=== PATIENT | female | born 2000 | race Caucasian/White ===

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

== ENCOUNTER 2018-06-11 12:29 | Emergency (ER) | payer OTHER ==
[2018-06-11] MEDS ORDERED: IBUPROFEN 200 MG TAB PO ONE (13:32)
--- NOTE | 2018-06-11 13:54 | EDPHY ---
H & P Stated Complaint: SLIPPED FELL HIT HEAD MONDAY IN [place] SEN AT ED/NO LOC FEELS CONFUSED/NOVA Time Seen by Provider: 06/11/18 13:50 HPI/ROS: CHIEF COMPLAINT: Head injury, neck pain, confusion HISTORY OF PRESENT ILLNESS: The patient is referred to the ED for evaluation headache, neck pain and confusion following a fall several days ago where she slipped and hit her head on the ice. The patient does report prior history of concussions. She denies any acute numbness or weakness. She does report some midline cervical spine tenderness. The patient denies any abdominal pain, chest pain or difficulty breathing. The patient is not anticoagulated. She does take Adderall for attention deficit hyperactivity disorder. REVIEW OF SYSTEMS: A comprehensive 10 point review of systems is otherwise negative aside from elements mentioned in the history of present illness. Source: Patient Exam Limitations: No limitations - Personal History LMP (Females 10-55): Now Current Tetanus Diphtheria and Acellular Pertussis (TDAP): Yes - Medical/Surgical History Hx Asthma: Yes Hx Chronic Respiratory Disease: No Hx Diabetes: No Hx Cardiac Disease: No Hx Renal Disease: No Hx Cirrhosis: No Hx Alcoholism: No Hx HIV/AIDS: No Hx Splenectomy or Spleen Trauma: No Other PMH: asthma - Social History Smoking Status: Never smoked - Physical Exam Exam: General Appearance: Alert, no distress Head: Significant occipital tenderness, no hematoma Eyes: Pupils equal, round, reactive ENT, Mouth: No hemotympanum, no oral trauma Neck: Midline cervical spine tenderness appreciated Respiratory: No chest wall tender, no subcutaneous air, lungs clear bilaterally Cardiovascular: Regular rate and rhythm Abdomen: Abdomen is soft and nontender, pelvis stable Skin: No lacerations, No abrasion Back: No midline T/L/S pain Extremities: Nontender, full range of motion Neurological: A&Ox3, normal motor function, normal sensory exam Constitutional: Initial Vital Signs Temperature (C) 36.7 C 06/11/18 12:35 Heart Rate 84 06/11/18 12:35 Respiratory Rate 18 06/11/18 12:35 Blood Pressure 112/87 H 06/11/18 12:35 O2 Sat (%) 98 06/11/18 12:35 O2 Delivery Mode Room Air Allergies/Adverse Reactions: No Known Allergies Allergy (Verified 06/11/18 12:33) Home Medications: Medication Instructions Recorded Adderall 10 MG (*) 06/11/18 Clonidine HCl 06/11/18 Spironolactone 06/11/18 Medical Decision Making - Diagnostics Imaging Results: Imaging Impressions Cervical Spine CT 06/11/18 13:52 Impression: Negative noncontrast CT of the head with no intracranial posttraumatic sequela identified. 2. CT Cervical Spine Without Contrast, 2:11 PM History: Trauma. Fall 2 days ago. Pain. Technique: Multi-slice ultrathin single breath-hold helical CT through the neck from the skull base through the thoracic inlet without contrast. Soft tissue and bone window evaluation is performed. Sagittal and coronal reconstructions are obtained. Dose reduction techniques were utilized. Findings: Alignment is anatomic, but mildly reversed centered at C4-C5.. No fracture or dislocation is identified. Disk spaces are well maintained. There is a small central disk bulge at C6-C7. Facets are normally aligned and intact. The skull base-C1 and C1-C2 relationships are normal. The odontoid process is intact. There is no evidence of a prevertebral or epidural hematoma. The cervical thoracic junction is normally aligned. Impression: Possible muscle spasm. No fracture or dislocation. Final concordant results discussed with Dr. Mango Rios at 2:40 PM. If there is concern for instability, then consider lateral flexion-extension views and/or cervical MRI. General information for patients regarding this examination can be found at [email or web address]. If you have questions or comments about this report, please contact me at (hospital) or [phone] (cell). Head CT 06/11/18 13:52 Impression: Negative noncontrast CT of the head with no intracranial posttraumatic sequela identified. 2. CT Cervical Spine Without Contrast, 2:11 PM History: Trauma. Fall 2 days ago. Pain. Technique: Multi-slice ultrathin single breath-hold helical CT through the neck from the skull base through the thoracic inlet without contrast. Soft tissue and bone window evaluation is performed. Sagittal and coronal reconstructions are obtained. Dose reduction techniques were utilized. Findings: Alignment is anatomic, but mildly reversed centered at C4-C5.. No fracture or dislocation is identified. Disk spaces are well maintained. There is a small central disk bulge at C6-C7. Facets are normally aligned and intact. The skull base-C1 and C1-C2 relationships are normal. The odontoid process is intact. There is no evidence of a prevertebral or epidural hematoma. The cervical thoracic junction is normally aligned. Impression: Possible muscle spasm. No fracture or dislocation. Final concordant results discussed with Dr. Mango Rios at 2:40 PM. If there is concern for instability, then consider lateral flexion-extension views and/or cervical MRI. General information for patients regarding this examination can be found at [email or web address]. If you have questions or comments about this report, please contact me at (hospital) or [phone] (cell). ED Course/Re-evaluation: The patient presents the ED with headache, neck pain post concussive symptoms after a fall that occurred several days ago. The patient is in no acute distress. The patient was taken for CT scan of her brain given her complaints of an acute headache and ongoing neurologic symptoms which demonstrate no evidence of an intracranial hemorrhage or skull fracture. Patient was noted to have midline cervical spine tenderness. CT scan of the area demonstrates no evidence of an acute fracture. The patient will be discharged home with customary concussion aftercare instructions. She is given the contact number of our on-call concussion specialist for any ongoing symptoms. Differential Diagnosis: Differential diagnosis considered includes concussion, intracranial hemorrhage, skull fracture, cervical spine fracture - Data Points Medications Given: Discontinued Medications Ibuprofen (Motrin) 400 mg PO EDNOW ONE Stop: 06/11/18 13:33 Last Admin: 06/11/18 13:35 Dose: 400 mg Departure - Departure Disposition: Home, Routine, Self-Care Clinical Impression: Concussion, Cervical strain, acute Condition: Good Instructions: Concussion (ED), Cervical Strain (DC) Additional Instructions: 1. Take Ibuprofen or Motrin 600 mg by mouth three times a day. 2. Concussion aftercare as directed. 3. Please follow up with our concussion specialist Dr. Clemens for any ongoing symptoms. 4. No contact sports or heavy exertion until cleared to do so by your primary care provider or our concussion specialist. 5. Return to the ED for any worsening symptoms or other concerns. Referrals: Herminia Clemens MD [Medical Doctor] - As per Instructions
[2018-06-11 15:19] VITALS: BP 122/81
== END 2018-06-11 15:19 | disposition home or self-care (01) ==
DX: S06.0X0A Concussion without loss of consciousness, initial encounter (principal); S16.1XXA Strain of muscle, fascia and tendon at neck level, initial encounter; W00.0XXA Fall on same level due to ice and snow, initial encounter; Y92.9 Unspecified place or not applicable; Y93.9 Activity, unspecified; Y99.9 Unspecified external cause status

== ENCOUNTER 2018-07-30 05:40 | Inpatient (IN) | payer OTHER ==
[2018-07-30 06:26] LABS: PLATELET COUNT 357 10^3/uL (150-400)
--- NOTE | 2018-07-30 06:59 | EDPHY ---
H & P Stated Complaint: PS Source: Patient Exam Limitations: No limitations - Personal History LMP (Females 10-55): Unknown Current Tetanus Diphtheria and Acellular Pertussis (TDAP): Yes - Medical/Surgical History Hx Asthma: Yes Hx Chronic Respiratory Disease: No Hx Diabetes: No Hx Cardiac Disease: No Hx Renal Disease: No Hx Cirrhosis: No Hx Alcoholism: No Hx HIV/AIDS: No Hx Splenectomy or Spleen Trauma: No Other PMH: asthma, ANXIETY, DEPRESSION, ADHD - Social History Smoking Status: Never smoked Time Seen by Provider: 07/30/18 05:51 HPI/ROS: HPI The patient presents with suicidal ideation with plan to drown herself in a [place]. She brings herself in from home because for the last 1 week she has had increasing suicidal thoughts. She has felt suicidal intermittently though has not had a planned until this morning. She says that she has a history of depression, anxiety, attention deficit hyperactivity disorder, PTSD. She is currently taking Adderall though no other medications. She has been dealing with a lot of stress in her life she reports. Her father recently and she also got into an argument with her boyfriend. She says she is not doing well in school and is unsure if she will be able to complete this semester. She has been having a lot of nightmares at night though has been eating and drinking well. She does admit to recent alcohol use.. REVIEW OF SYSTEMS 10 systems were reviewed and negative with the exception of the elements mentioned in the history of present illness. PMHx: Reported history of depression, anxiety, attention deficit hyperactivity disorder, PTSD Soc Hx: College student, uses alcohol and marijuana occasionally PHYSICAL General Appearance: Alert, no distress Eyes: Pupils equal and round no pallor or injection ENT, Mouth: Mucous membranes moist Respiratory: There are no retractions, lungs are clear to auscultation Cardiovascular: Regular rate and rhythm Gastrointestinal: Abdomen is soft and non-tender, no masses, bowel sounds normal Neurological: A&O, moves all extremities Skin: Warm and dry, no rashes Musculoskeletal: Neck is supple non tender Extremities: symmetrical, full range of motion Psychiatric: Patient is oriented X 3, there is no agitation (Riguzzi,Darya) Constitutional: Initial Vital Signs Temperature (C) 37.1 C 07/30/18 05:46 Heart Rate 86 07/30/18 05:46 Respiratory Rate 16 07/30/18 05:46 Blood Pressure 120/84 H 07/30/18 05:46 O2 Sat (%) 96 07/30/18 05:46 O2 Delivery Mode Room Air Allergies/Adverse Reactions: nut - unspecified Allergy (Verified 07/30/18 05:45) Home Medications: Medication Instructions Recorded Adderall 10 MG (*) 06/11/18 Clonidine HCl 06/11/18 Medical Decision Making ED Course/Re-evaluation: 0700: I assumed care of this patient from Dr. Francisco at shift change. 1205: Patient has been accepted to by Dr. Feliciano. EMTALA signed. (James Mendoza) Differential Diagnosis: 18-year-old female with past psychiatric history, currently on Adderall, presents with suicidal ideation with plan to jump in a [place] and drown herself. Plan to place her on M1 hold for her suicidality. Will check basic labs. At 7:00 a.m., case is signed out to oncoming provider Dr. Mendoza pending mental health evaluation. (Darya Chapman) - Data Points Laboratory Results: Laboratory Results 07/30/18 06:15 07/30/18 06:15 07/30/18 07/30/18 07/30/18 06:15 06:15 06:15 WBC 13.12 10^3/uL H 10^3/uL (3.80-9.50) RBC 4.65 10^6/uL 10^6/uL (4.18-5.33) Hgb 13.1 g/dL g/dL (12.6-16.3) Hct 39.7 % % (38.0-47.0) MCV 85.4 fL fL (81.5-99.8) MCH 28.2 pg pg (27.9-34.1) MCHC 33.0 g/dL g/dL (32.4-36.7) RDW 13.7 % % (11.5-15.2) Plt Count 357 10^3/uL 10^3/uL (150-400) MPV 9.9 fL fL (8.7-11.7) Neut % (Auto) 55.1 % % (39.3-74.2) Lymph % (Auto) 34.1 % % (15.0-45.0) [place] % (Auto) 7.5 % % (4.5-13.0) Eos % (Auto) 2.1 % % (0.6-7.6) Baso % (Auto) 0.7 % % (0.3-1.7) Nucleat RBC Rel Count 0.0 % % (0.0-0.2) Absolute Neuts (auto) 7.23 10^3/uL H 10^3/uL (1.70-6.50) Absolute Lymphs (auto) 4.48 10^3/uL H 10^3/uL (1.00-3.00) Absolute Monos (auto) 0.98 10^3/uL H 10^3/uL (0.30-0.80) Absolute Eos (auto) 0.28 10^3/uL 10^3/uL (0.03-0.40) Absolute Basos (auto) 0.09 10^3/uL 10^3/uL (0.02-0.10) Absolute Nucleated RBC 0.00 10^3/uL 10^3/uL (0-0.01) Immature Gran % 0.5 % % (0.0-1.1) Immature Gran # 0.06 10^3/uL 10^3/uL (0.00-0.10) Sodium 139 mEq/L mEq/L (135-145) Potassium 3.6 mEq/L mEq/L (3.5-5.2) Chloride 102 mEq/L mEq/L (97-110) Carbon Dioxide 25 mEq/l mEq/l (22-31) Anion Gap 12 mEq/L mEq/L (6-14) BUN 17 mg/dL mg/dL (7-23) Creatinine 0.7 mg/dL mg/dL (0.6-1.0) Estimated GFR > 60 Glucose 92 mg/dL mg/dL (70-100) Calcium 9.6 mg/dL mg/dL (8.5-10.4) Beta HCG, Qual NEGATIVE Urine Opiates Screen Urine Barbiturates Ur Phencyclidine Scrn Ur Amphetamine Screen U Benzodiazepines Scrn Urine Cocaine Screen U Marijuana (THC) Screen Ethyl Alcohol < 10 mg/dL mg/dL (0-10) 07/30/18 06:10 WBC RBC Hgb Hct MCV MCH MCHC RDW Plt Count MPV Neut % (Auto) Lymph % (Auto) [place] % (Auto) Eos % (Auto) Baso % (Auto) Nucleat RBC Rel Count Absolute Neuts (auto) Absolute Lymphs (auto) Absolute Monos (auto) Absolute Eos (auto) Absolute Basos (auto) Absolute Nucleated RBC Immature Gran % Immature Gran # Sodium Potassium Chloride Carbon Dioxide Anion Gap BUN Creatinine Estimated GFR Glucose Calcium Beta HCG, Qual Urine Opiates Screen NEGATIVE (NEGATIVE) Urine Barbiturates NEGATIVE (NEGATIVE) Ur Phencyclidine Scrn NEGATIVE (NEGATIVE) Ur Amphetamine Screen NON-NEGATIVE H (NEGATIVE) U Benzodiazepines Scrn NEGATIVE (NEGATIVE) Urine Cocaine Screen NEGATIVE (NEGATIVE) U Marijuana (THC) Screen NEGATIVE (NEGATIVE) Ethyl Alcohol Departure - Departure Disposition: [facility] IP Clinical Impression: Suicidal ideation Condition: Fair Referrals: NONE *PRIMARY CARE P,. [Primary Care Provider] - As per Instructions
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
--- NOTE | 2018-07-30 16:08 | ASMTTCLDSP ---
TLC Discharge Disposition Disposition: Answers: Admit Disposition Notes: Notes: In consultation with [facility] ED physician, James Mendoza MD and on-call psychiatrist, Sam Feliciano MD, both concurred that pt appears to meet 27-65 criteria requiring psychiatric hospitalization as pt appears to be at risk of harm to gravely disabled due to a mental illness condition. Pt was read the Patient Rights and Responsibilities Statement on 07/28/18 at 15:30 by clinician at [facility], original placed on chart, and was given photocopy of Rights. Pt declined to sign the Patient Rights. Pt was given the 3N prohibited belongings list while in the ED. Was patient given the Answers: Yes Inpatient Behavioral Health Prohibited Belongings List while in the ED? For inpatient Sam Feliciano admission, the following psychiatrist agreed to accept patient for admission to [facility] Hold initiated by: Answers: ED Physician Date Signed: 07/30/2018 04:07 PM Electronically Signed By:Nadia Acuna
[2018-07-30] MEDS ORDERED: MAG HYDROX/AL HYDROX/SIMETH 30 ML UDCUP PO PRN ×2 (16:40→17:26)
[2018-07-30] MEDS ORDERED: MAGNESIUM HYDROXIDE 30 ML UDCUP PO PRN ×2 (16:40→17:26)
[2018-07-30] MEDS ORDERED: ACETAMINOPHEN 325 MG TAB PO PRN (16:40)
[2018-07-30] MEDS ORDERED: NICOTINE POLACRILEX 2 MG GUM B PRN (17:26)
[2018-07-30] MEDS ORDERED: LORazepam 0.5 MG TAB PO PRN (17:26)
[2018-07-30] MEDS ORDERED: ALBUTEROL 60 PUFFS/8 GM MDI IH PRN (17:27)
[2018-07-30] MEDS ORDERED: CARBOXYMETHYLCELLULOSE 1% 0.4 ML DROPERETTE EACHEYE PRN (17:27)
[2018-07-31] MEDS: ACETAMINOPHEN 325 MG TAB PO PRN (08:10)
[2018-07-31] MEDS: CETIRIZINE 10 MG TAB PO SCH (08:10)
[2018-07-31] MEDS: OMEGA-3 FATTY ACIDS 1,000 MG CAP PO SCH (08:10)
[2018-07-31] MEDS ORDERED: FERROUS SULFATE 325 MG TAB PO SCH (09:00)
[2018-07-31] MEDS ORDERED: SERTRALINE HCL 50 MG TAB PO ONE (09:03)
--- NOTE | 2018-07-31 11:02 | ASMTBHMTP ---
Master Treatment Plan Master Treatment Plan Answers: Depressed Mood with for: Suicidal Ideation Date: 07/31/2018 Diagnosis on Admission: Major Depressive Disorder, recurrent, severe Expected length of stay: 3-5 Days Reason for admission: Notes: Pt is a 18 year old, single, female who self presented the [facility] ED due to suicidal thoughts of drowning herself in a [place]. Pt stated she walked to a [place] with the intention of drowning herself. Pt did call a suicide hotline and her step mother but indicated she did not find talking with anyone helpful. Pt expressed not being worried about how her suicide would impact others including family since everyone would be better off without her. Pt identified multiple stressors including a concussion in May. which caused her to miss classes putting her further behind in school, a recent break up with a boyfriend who she described as her best friend, and the of her father from brain cancer and declining academic performance. Pt stated over the past week she has been experiencing suicidal thoughts and this morning was the 1st time she had an actual plan. Patient's stated presenting problems: Notes: Pt. stated she "felt suicidal". Patient's goals for treatment: Notes: Pt. reports wanting "stability and finding balance", adding to "get into health habits". Patient's strengths: Notes: Pt. stated "caring for others". Identify supports outside of hospital: Notes: Pt. stated her "four main, good friends", therapist Yanni, psychiatrist Dr. Marte, and her life insurance underwriter. Discharge criteria: Notes: Suicidal ideation will resolve and patient will have a plan to safely manage recurrent suicidal ideation. Initial disposition plan/considerations: Notes: Pt. stated she plans to return to her apartment and school at . Master Treatment Plan Required Signatures Psychiatrist signature: Answers: BO Diaz: RN on-shift signature: Answers: RN: Patient signature: Answers: Patient: Date Signed: 07/31/2018 11:02 AM Electronically Signed By:Mayra Segovia
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
--- NOTE | 2018-07-31 11:27 | PDMN ---
Medical Necessity Medical necessity: Pt meets inpt criteria per MD order and [facility] [id number], Posttraumatic Stress Disorder, Adult: Inpatient Care, 3 days. 18 y/o admitted w/ PTSD and unspecified anxiety disorder, hx of ADHD, on M1 Hold due to suicidal ideation/plan requiring inpt psychiatric hospitalization.
--- NOTE | 2018-07-31 13:48 | BCON ---
[f rep st] BEHAVIORAL HEALTH CONSULTATION INTERNAL MEDICINE CONSULTATION DATE OF CONSULTATION: 07/31/2018 REFERRING PHYSICIAN: Dr. Feliciano REASON FOR REFERRAL: Medical clearance for inpatient behavioral health stay. HISTORY OF PRESENT ILLNESS: This patient came to the emergency department with suicidal ideation and a plan to drown herself in a [place]. She did not feel that she could be safe. She was evaluated by the mental health team and admitted for further psychiatric care. She is currently without any acute complaints. PAST MEDICAL HISTORY: 1. Depression. 2. Asthma. 3. ADHD. 4. Concussion. PAST SURGICAL HISTORY: She has had wisdom teeth extraction. MEDICATIONS: Prior to admission: 1. [place]-3 fatty acids 1000 mg p.o. daily. 2. Ferrous sulfate 325 mg p.o. daily. 3. Cetirizine 10 mg p.o. daily. 4. Refresh eyedrops p.r.n. 5. Albuterol 1 to 2 puffs q.4 hours p.r.n. 6. Clonidine 0.1 mg p.o. at bedtime. 7. Hydroxyzine 25 mg p.o. q.6 hours p.r.n. 8. Dextroamphetamine/amphetamine 20 mg p.o. daily. ALLERGIES: There are no medication allergies. An allergy to nuts is listed. SOCIAL HISTORY: She is a student at the [employer] living with roommates. She is a nonsmoker. She uses occasional alcohol and occasional marijuana. FAMILY HISTORY: She was adopted and does not know her family history. REVIEW OF SYSTEMS: She denies weight change, fevers, chills, cough, or dyspnea. She reports she only has asthma symptoms when she comes back to altitude from lower elevation. She denies chest pain or palpitations. She denies nausea, vomiting, constipation, or diarrhea. She denies dysuria or urinary frequency. She is not currently on her menstrual period. PHYSICAL EXAM: VITAL SIGNS: Blood pressure is 96/78, heart rate is 79, respiratory rate is 15, oxygen saturation is 97% on room air. Temperature is 36.8 degrees centigrade. GENERAL: This is a well-nourished, well-developed woman, who appears her chronologic age, cooperative, and in no acute distress. HEENT: Extraocular movements are intact. Pupils are dilated but equal and round and reactive to light. Mucous membranes are moist. Dentition is in good condition. She has an uncrowded airway, Mallampati class 1. NECK: Supple. HEART: There is regular rate and rhythm with no murmurs, rubs, or gallops. LUNGS: Clear to auscultation bilaterally. ABDOMEN: Benign. EXTREMITIES: There is no cyanosis, clubbing, or edema. NEUROLOGIC: She is alert and oriented x3. Cranial nerves 2 through 12 are grossly intact. There is no focal weakness and sensation is intact to light touch. Gait is normal. SKIN: She has a flesh-colored, rough-textured lesion on her left superior anterior chest. LABORATORY STUDIES: From yesterday, CBC showed an elevated white blood cell count and otherwise was overall within normal limits. There was no left shift. White count was 13.12. Serum chemistry showed normal renal function and electrolytes. Hemoglobin A1c was normal at 5.4. Lipid panel was quite benign. Toxicology screen in the serum was negative for ethyl alcohol, and in the urine , was non-negative for amphetamines but otherwise negative for substances of abuse. ASSESSMENT AND RECOMMENDATIONS: 1. Mental health issues. Pending further evaluation and management per Psychiatry and the mental health team. 2. History of anemia. She is not anemic and has no microcytosis. I will discontinue iron which has been ordered. I recommended to her that she does not need to take iron. 3. History of asthma which is quiescent. 4. Leukocytosis. Likely due to stress. She shows no signs or symptoms of infection. I see no medical contraindications to this patient's continued stay on the inpatient behavioral health unit or to any psychiatric medications or procedures. Thank you very much for including me in the care of this patient and please do not hesitate to contact me or the hospitalist service should there be need for further medical evaluation. /[id number]/MODL MTDD
[2018-07-31] MEDS ORDERED: CEPACOL LOZENGE PO PRN (15:31)
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
--- NOTE | 2018-08-01 08:07 | SOAPPROG ---
SOAP Progress Note Assessment/Plan: Assessment: Major Depressive Disorder, Severe, with anxious distress. Improvement noted. ( see subjective/objective note). Patient could benefit from continued inpatient hospitalization for crisis stabilization, safety, and medication evaluation. Consider discharge tomorrow after family meeting with patient's step-mother at patient's request. Plan: 1. Psychotropic medications: After reviewing options, risks, and benefits patient agrees to continue current medications. No medication changes at this time as more time is needed to determine ongoing tolerability and efficacy. Plan is to continue to observe patient for response and side effects from medications, and ongoing monitoring and evaluation. 2. Review with patient informed consent and recommendations for psychotropic medication treatment listed below 3. Labs: no additional at this time 4. Therapy: continue milieu and group therapy 5. Further investigation including gathering information from patients relatives and review of past case records to inform treatment plan. 6. Safety/Wellness plan and follow-up outpatient appointments to be established prior to discharge. Next steps are for patient to meet with career orientation teacher to plan a safe discharge plan and establish outpatient services for ongoing treatment. 7. Confer with inpatient treatment team regarding treatment plan. 8. Psychosocial stressors addressed through pillowcase sewer. 9. Legal status: M1 10. Consider discharge on if patient is in stable condition, safe, and has a safe discharge plan. 11. Family meeting with patients step-mother prior to discharge. PSYCHOTROPIC MEDICATION TREATMENT INFORMED CONSENT and RECOMMENDATIONS: Review nature of condition, diagnosis, and prognosis. Review nature and purpose of psychotropic medication treatment. Review type of psychotropic medications being ordered. Review risk and benefits of psychotropic medication treatment. Review probable length of time patient will need to take medications. Review risk and benefits of not undergoing psychotropic medication treatment. Review alternative treatments to psychotropic medications. Review psychotropic medications contraindications, drug-drug interactions, side effects, and importance of reporting any side effects to a psychiatric provider or nurse during inpatient hospitalization, and upon discharge to patients psychiatric outpatient provider, primary care provider, or other health care companion. Review importance of asking a nurse, psychiatric provider, or primary care provider any questions or problems concerning the psychotropic medications. Verify patient understands the information that has been provided, and understands, accepts, and agrees to psychotropic medications. Review patients safety plan and importance of patient to report to staff while hospitalized if patient is ever a danger to self/others, or unable to care for self, and upon discharge, the importance for patient to contact [facility] or [facility], or go to the nearest emergency room, if patient is ever a danger to self/others, or unable to care for self. Recommend that upon discharge patient establish medication management treatment with a psychiatric provider, establishes routine therapy appointments, and follow-up with primary care provider. Verify patient understands and agrees to these recommendations. 08/01/18 08:05 Subjective: Following up with patient for evaluation of mood and safety. Patient reports, "Feeling better." Patient expresses the following psychiatric symptoms none. Patient reports taking medications as prescribed. Patient does not report undesirable side effects from the medications, and agrees to continue current medications. Patient describes getting 8 hours of sleep. Patient agrees to family meeting with her step-mother prior to discharge. Objective: Vital Signs Temp Pulse Resp BP Pulse Ox 36.6 C 77 15 113/62 97 08/01/18 06:00 08/01/18 06:00 08/01/18 06:00 08/01/18 06:00 08/01/18 06:00 NURSING REPORT: Consulted with nursing for update on patients progress in treatment. Nurses report patient is engaged in treatment, is attending groups, slept 8 hours, expresses the following psychiatric symptoms: mild anxiety, exhibits the following psychiatric symptoms: none, is eating all meals, is agreeable to medications and taking as prescribed with no report of side effects , with no s/s of EPS/akathisia, and denies SI/HI, denies A/V hallucinations, and denies delusions. FAMILY MEETING: This TUNNEL HEADING INSPECTOR and patient plan to have family meeting with patients step-mother by phone prior to patient discharging. MSE: The patient presents casually dressed and with good hygiene, and looks stated age. Patient is sitting, posture is upright, and position is relaxed. Patient appears awake, alert, and responds appropriately and reasonably during interview. Patient is engaged, relates well to interviewer, and emotional facial expression is appropriate to situation and changes appropriately with topic. Patient is cooperative, makes comfortable eye contact, and movements are voluntary, deliberate, coordinated, and smooth and even with no inappropriate movements. Patient makes laryngeal sounds effortlessly and shares conversation appropriately; pace of conversation is appropriate, and stream of talking is fluent; articulation is clear and understandable; word choice is effortless and appropriate for education level; completes sentences, occasionally pausing to think; rate and volume are appropriate for interview and setting. Patient reports mood as euthymic. Patients affect is stable with full variable range, congruent with mood, and appropriate to speech and circumstances. Patient has linear and logical thinking, with no loose associations, tangential thought, thought blocking, concrete thinking, or any other signs of formal thought disorder. Patient denies suicidal and homicidal ideation, and denies hallucinations and delusions. Patient appears to be a reliable historian with sound judgement and good insight into current condition. Patient has no apparent dysfunction in recent or remote memory noted , and no evidence of gross cognitive dysfunction noted at any point during the interview. - Time Spent With Patient Time Spent With Patient: 15 minutes, met with patient individually. - Pending Discharge Pending Discharge Within 24 Hours: Yes Pending Discharge Within 48 Hours: No Pending Discharge Date: 08/02/18 Pending Discharge Time: 11:00 ICD10 Worksheet Patient Problems: Problems Problem Status Onset Suicidal ideation Acute Major depressive disorder, recurrent episode, severe with anxious distress Chronic
[2018-08-01] MEDS: CETIRIZINE 10 MG TAB PO SCH (08:17)
[2018-08-01] MEDS: OMEGA-3 FATTY ACIDS 1,000 MG CAP PO SCH (08:17)
[2018-08-01] MEDS ORDERED: SERTRALINE HCL 100 MG TAB PO SCH ×2 (09:00→21:00)
[2018-08-01] MEDS: ACETAMINOPHEN 325 MG TAB PO PRN (11:18)
--- NOTE | 2018-08-01 13:16 | ASMTBHDC ---
Notes Note: Notes: Pt. reports feeling "good, really tired". Pt. stated reports starting a new medication. Pt. stated she would be interested to see about moving the time she takes her medication. PNP notified. Pt. reports no other issues with her current medications. Pt. stated she slept "okay" but was a bit cold. Pt. reports getting enough to eat and attending groups. Pt. stated she will be discharging tomorrow and is "excited". Pt. reports being able to get to her follow up appointments. Pt. reports needing a letter for missing classes. Pt. requested to return to class after spring break on 08/13/18. Pt. denied SI, HI, AVH and paranoia. Pt. presents as alert but tired, calm, friendly, good eye contact, groomed, polite and cooperative. Staff report pt. sleeping 7 hours last night and being medication complaint. CC to reach out to pt's therapist for follow up appointment. Pt. is currently scheduled to see PNP Jackson Marte on Tuesday 08/08 @ 2pm. Date Signed: 08/01/2018 01:15 PM Electronically Signed By:Mayra Segovia
[2018-08-02 06:51] VITALS: BP 112/70
--- NOTE | 2018-08-02 07:13 | BDS ---
[f rep st] BEHAVIORAL HEALTH DISCHARGE SUMMARY REASON FOR ADMISSION: From the ED note dated 07/30/2018, the patient presented to the emergency department with suicidal ideation with plan to drown herself in a adam. The patient reports increased suicidal thoughts over the past week. The patient was admitted involuntarily and on an M1 hold due to being a danger to herself. The patient was admitted for safety, crisis stabilization, and medication management. ADMITTING DIAGNOSIS: Major depressive disorder, recurrent episode, severe, with anxious distress. ADMISSION PHYSICAL EXAM: The patient was seen on 07/31/2018, for an H and P consultation for medical clearance for inpatient psychiatric hospitalization and treatment. The patient was medically cleared for inpatient psychiatric hospitalization and treatment. For further details, please refer to consultation document dated 07/31/2018. ADMISSION LABS: 1. CBC: Within normal limits, except white blood cells were elevated at 13.12 , absolute neutrophils were elevated at 7.23, absolute lymphocytes elevated at 4.48, absolute monocytes elevated at 0.98. 2. BMP within normal limits. 3. Hemoglobin A1c within normal limits at 5.4. 4. Lipid panel within normal limits, except LDL cholesterol calculated was low at 58, non-HDL cholesterol low at 78 and LDL/HDL ratio low at 0.88. 5. Beta HCG qualitative test negative. 6. Toxicology screen non-negative for amphetamine. Negative for all other substances that were screened, and negative for ethyl alcohol. The patient reports a prescription of Adderall and this is likely the reason for the patient 's amphetamine screen to be non-negative. MAJOR PROCEDURES OR TESTS: None. HOSPITAL COURSE: The most prominent symptoms and behaviors while the patient was here were reports of moderate anxiety and depression. Treatment modalities utilized were milieu group therapy. Clonidine 0.1 mg p.o. q.h.s. was continued to target mood symptoms. It was tolerated with no report of side effects and with good response. Zoloft 50 mg p.o. daily was started to target mood symptoms , was tolerated with no report of side effects. Patient has improved considerably with no signs of psychiatric symptoms and no psychiatric symptoms expressed. Patient reports she has improved since admission, states to be in stable condition, feels safe to discharge, and she contracts for safety. Patients response to treatment was good. There were no adverse or unexpected results of treatment. The patient was safe throughout stay, active in treatment , engaged in groups, and was appropriate with staff. Patient met with treatment team prior to discharge to assess readiness to discharge and review discharge plan. The treatment team consensus is the patient in stable condition , has a safe discharge plan, and is ready to discharge today. CONDITION AT DISCHARGE: Patient is in stable condition and is no longer a danger to self or others, and is not gravely disabled due to mental illness. Patient is no longer in need of inpatient level of care, and can be safely and effectively treated within the community. The patients level of risk at time of discharge is low. MSE: The patient is casually dressed and with good hygiene , and looks stated age. Patient is sitting, posture is upright, and position is relaxed. Patient appears awake, alert, and responds appropriately and reasonably during interview. Patient is engaged, relates well to interviewer, and emotional facial expression is appropriate to situation and changes appropriately with topic. Patient is cooperative, makes comfortable eye contact , and movements are voluntary, deliberate, coordinated, and smooth and even with no inappropriate movements. Patient makes laryngeal sounds effortlessly and shares conversation appropriately; pace of conversation is appropriate, and stream of talking is fluent; articulation is clear and understandable; word choice is effortless and appropriate for education level; completes sentences, occasionally pausing to think; rate and volume are appropriate for interview and setting. Patient reports mood as euthymic. Patients affect is stable with full variable range, congruent with mood, and appropriate to speech and circumstances. Patient has linear and logical thinking, with no loose associations, tangential thought, thought blocking, concrete thinking, or any other signs of formal thought disorder. Patient denies suicidal and homicidal ideation, and denies hallucinations and delusions. Patient appears to be a reliable historian with sound judgement and good insight into current condition. Patient has no apparent dysfunction in recent or remote memory noted , and no evidence of gross cognitive dysfunction noted at any point during the interview. DISCHARGE DIAGNOSIS: Major depressive disorder, severe, with anxious distress. CURRENT MEDICATIONS: After reviewing options, risks, and benefits with the patient, the patient agrees to continue: 1. Clonidine 0.1 mg p.o. q.h.s. 2. Adderall XR 20 mg capsule p.o. daily. 3. [place]-3 fatty acids, fish oil 1000 mg p.o. daily. 4. Ferrous sulfate 325 mg p.o. daily. 5. Zyrtec 10 mg p.o. daily. 6. Albuterol 1 to 2 puffs IH q.4 hours p.r.n. 7. Refresh Celluvisc 1 drop each eye daily as needed. The patient requests a prescription for Zoloft at time of discharge. A prescription for 30 days is provided. Prescription is reviewed with the patient at time of discharge to ensure accuracy and patient understanding. The patient's medications reviewed at time of discharge to ensure accuracy and patient understanding. The patient plans to follow up with her outpatient psychiatrist after discharge. Patient will be currently prescribed Adderall XR by her outpatient psychiatrist for the treatment of attention deficit hyperactivity disorder. DISPOSITION: Patient left hospital independently and voluntarily. The patient reports she plans to go skiing with her friends today in [place] and then return home and continue course work at [facility]. FOLLOWUP: blood bank coordinator reports the appropriate outpatient follow-up services have been established and outpatient appointments have been scheduled. The patient received written instructions with times and dates of outpatient follow-up appointments. The following follow-up recommendations were provided to the patient at discharge: Continue psychotropic medications as prescribed and attend appointments as scheduled. Report any side effects to a psychiatric outpatient provider, a primary care provider, or other health care director. Address any questions or problems concerning the psychotropic medications with a psychiatric outpatient provider, a primary care provider, or other health care director. Contact [facility] or [facility], or go to the nearest emergency room, if you are ever a danger to yourself/others, or unable to care for yourself. As soon as possible, establish a routine medication management treatment with a psychiatric provider, establish routine therapy appointments, and follow-up with a primary care provider. LEGAL COURSE: The patient was admitted involuntarily for inpatient psychiatric hospitalization and treatment. The patient discharged today independently and voluntarily. ATTITUDE AT TIME OF DISCHARGE: The patients attitude was positive at time of discharge, and patient reports looking forward to discharging today. The patient reports she feels safe to discharge, is no longer a danger to herself or others, is in stable condition, and contracts for safety. Patient states she will continue medications as prescribed, and establish medication management treatment with an outpatient provider after discharge. Patient reports she understands the information that has been provided to her, and she understands, accepts, and agrees to psychotropic medications. Patient describes internal protective factors as the coping skills she has learned while hospitalized here, and she plans to continue to practice these coping skills after discharge. FAMILY MEETING: This ASSEMBLER MOVEMENT and patient, at patient's request, have a family meeting with patient's step-mom by phone prior to patient discharging to assess readiness to discharge and review discharge plan. Consensus is patient safe to discharge and has safe discharge plan. LABS AND RADIOLOGY STUDIES: There were no pending labs or studies at time of discharge. ADVANCED DIRECTIVES: There were no advance directives on file, and patient was full code during this hospitalization. The following psychotropic medication treatment informed consent and recommendations were provided to the patient at time of discharge. Patient reports she understands, accepts, and agrees to the information that has been provided. PSYCHOTROPIC MEDICATION TREATMENT INFORMED CONSENT and RECOMMENDATIONS: Review nature of condition, diagnosis, and prognosis. Review nature and purpose of psychotropic medication treatment. Review type of psychotropic medications being prescribed. Review risk and benefits of psychotropic medication treatment. Review probable length of time will need to take medications. Review risk and benefits of not undergoing psychotropic medication treatment. Review alternative treatments to psychotropic medications. Review psychotropic medications contraindications, side effects, and importance of reporting any side effects to a psychiatric provider, primary care provider, or other health care director. Review importance of her asking a psychiatric provider or primary care provider any questions or problems concerning the psychotropic medications. Review importance of reporting to a psychiatric provider, primary care provider, or other health care director if she plans to or becomes . Review safety plan and the importance to contact [facility] or [facility] , or go to the nearest emergency room, if ever a danger to yourself/others, or unable to care for yourself. Recommend upon discharge to establish routine medication management treatment with a psychiatric provider, establish routine therapy appointments, and follow-up with a primary care provider. Verify patient understands, accepts, and agrees to the information that has been provided. /[id number]/MODL MTDD
[2018-08-02] MEDS: CETIRIZINE 10 MG TAB PO SCH (08:21)
[2018-08-02] MEDS: OMEGA-3 FATTY ACIDS 1,000 MG CAP PO SCH (08:21)
[2018-08-02] MEDS: ACETAMINOPHEN 325 MG TAB PO PRN (09:27)
--- NOTE | 2018-08-02 11:02 | ASMTBHDC ---
Notes Note: Notes: Pt. reports feeling "good". Pt. shared she was able to work on her homework assignment. Pt. reports sleeping "alright". Pt. stated the provider changed her medication to the evening due to it making her tired. Pt. reports she is going skiing tomorrow with friends. Pt. report attending groups and getting enough to eat. Pt. denied SI, HI, AVH and paranoia. Pt. reports she wants to get a uber home upon discharge. Pt. stated she is able to get to her follow up appointments. Pt. reports being able to fill and take her medications as prescribed. Pt. presents as alert, calm, bit excited, good eye contact, groomed, and cooperative. Staff report pt. sleeping 6.5 hours and being medication compliant. Pt's follow up: Jackson Marte - [facility], [address], [address] [place] [address] Next appointment - Wednesday August 08, 2018 (08/08/18) at 2:00pm Patient will receive a confirmation email Yanni Montes De Oca - Therapist CC unable to contact therapist prior to discharge for follow up appointment. Patient stated she is able to text therapist and will attempt to see therapist on day of discharge. Date Signed: 08/02/2018 11:02 AM Electronically Signed By:Mayra Segovia
== END 2018-08-02 11:10 | disposition home or self-care (01) | DRG 885 ==
LOC: BBEH 14:21
PROVIDERS: ADMIT Psychiatry & Neurology Psychiatry; ATTEND Psychiatry & Neurology Psychiatry
DX: F32.2 Major depressive disorder, single episode, severe without psychotic features (principal); F41.9 Anxiety disorder, unspecified; F12.90 Cannabis use, unspecified, uncomplicated; R45.851 Suicidal ideations
CPT/HCPCS: 80305; G0480

== ENCOUNTER 2018-09-20 06:11 | Emergency (ER) | payer OTHER ==
[2018-09-20] MEDS ORDERED: PROPARACAINE 0.5% 15 ML OPHT DROP ONE (06:16)
[2018-09-20] MEDS ORDERED: PROPARACAINE 0.5% 15 ML OPHT DROP EACHEYE ONE (06:20)
[2018-09-20] MEDS ORDERED: FLUORESCEIN SODIUM 1 MG STRIP OP ONE (06:31)
--- NOTE | 2018-09-20 06:53 | EDPHY ---
H & P Time Seen by Provider: 09/20/18 06:50 HPI/ROS: Chief complaint. Eye pain, blurry vision HPI. 18-year-old female without history of eye problems presents with bilateral eye pain and blurry vision. She developed upper respiratory symptoms 2 days ago. She had red eyes. She was seen at urgent care and they diagnosed her with viral conjunctivitis. She has redness and itching minimal drainage. She has been using [id number] pink eye drops beginning yesterday. Then yesterday she began to have pain and blurry vision both eyes. She does not wear contacts. She has had no previous eye surgery. No fever. No rash. ROS 10 systems were reviewed and negative with the exception of the elements mentioned in the history of present illness Past Medical/Surgical History: Asthma, anxiety, depression, attention deficit hyperactivity disorder Social History: Single, nonsmoker, no alcohol Smoking Status: Never smoked Physical Exam: General Appearance: Alert well-developed female moderate distress vital signs are stable Eyes: Pupils equal round reactive. The conjunctiva is injected bilaterally. There is no exudate noted. Extraocular movements are intact. Funduscopic exam is unremarkable ENT, Mouth: Mucous membranes are moist. Respiratory: There are no retractions, lungs are clear to auscultation. Cardiovascular: Regular rate and rhythm. Gastrointestinal: Abdomen is soft and nontender, no masses, bowel sounds normal. Neurological: Awake and alert, sensory and motor exams grossly normal. Skin: Warm and dry, no rashes. Musculoskeletal: Neck is supple nontender. Extremities symmetrical, full range of motion. Psychiatric: Patient is oriented X 3, there is no agitation. Constitutional: Initial Vital Signs Temperature (C) 36.6 C 09/20/18 06:12 Heart Rate 100 09/20/18 06:12 Respiratory Rate 16 09/20/18 06:12 Blood Pressure 111/87 H 09/20/18 06:12 O2 Sat (%) 100 09/20/18 06:12 O2 Delivery Mode Room Air Allergies/Adverse Reactions: nut - unspecified Allergy (Verified 09/20/18 06:12) Home Medications: Medication Instructions Recorded Dextroamphetamine/Amphetamine 20 mg PO DAILY 06/11/18 [Adderall Xr 20 mg Capsule] clonIDINE [Catapres (*)] 0.1 mg PO HS 06/11/18 Albuterol [Proventil Inhaler HFA 1 - 2 puffs IH Q4H PRN 07/30/18 (*)] Carboxymethylcellulose 1% [Refresh 1 drop EACHEYE DAILY PRN 07/30/18 Celluvisc (*)] Cetirizine [ZyrTEC 10 mg (*)] 10 mg PO DAILY 07/30/18 Ferrous Sulfate [Ferrous Sulf 325 325 mg PO DAILY 07/30/18 MG (*)] [place]-3 Fatty Acids [Fish Oil 1000 1,000 mg PO DAILY 07/30/18 mg (*)] Sertraline HCl [Zoloft 50mg (*)] 50 mg PO DAILY 30 Days #30 tab 08/02/18 Medical Decision Making Procedures: Visual acuity shows right eye 20/400, left eye 20/150 Slit lamp exam--flourescein and alcaine are instilled in both eyes. The eyes are examined under slit lamp. I do not see any fluorescence. No foreign body. No evidence of globe perforation. ED Course/Re-evaluation: Patient remained somewhat agitated. She is given ibuprofen and Ativan orally. I consulted discussed the case with Ophthalmology who will see her in the office right now. I discussed this treatment plan with the patient and she expresses understanding and agreement Differential Diagnosis: Conjunctivitis from probably viral URI. No obvious evidence of abrasions or ulcerations. She is not a contact lens wearer. No obvious keratitis on her slit-lamp exam. No perforation of the globe. However significant blurry vision. Further evaluation by Ophthalmology this morning. - Data Points Medications Given: Discontinued Medications Ibuprofen (Motrin) 600 mg PO EDNOW ONE Stop: 09/20/18 08:24 Last Admin: 09/20/18 08:24 Dose: 600 mg Lorazepam (Ativan) 1 mg PO EDNOW ONE Stop: 09/20/18 08:23 Last Admin: 09/20/18 08:24 Dose: 1 mg Proparacaine HCl (Alcaine 0.5%) 1 drops EACHEYE ONCE ONE Stop: 09/20/18 06:21 Last Admin: 09/20/18 06:21 Dose: 1 drop Departure - Departure Disposition: Home, Routine, Self-Care Clinical Impression: Acute conjunctivitis of both eyes Qualifiers: Acute conjunctivitis type: unspecified Qualified Code(s): H10.33 - Unspecified acute conjunctivitis, bilateral Condition: Fair Instructions: Conjunctivitis (ED) Additional Instructions: Go to sewing inspector office from the emergency department. Referrals: Patient,NotPresent [Unknown] - As per Instructions Gary Oliva MD [Medical Doctor] - 1 day without fail
[2018-09-20] MEDS ORDERED: LORazepam 1 MG TAB ONE (08:21)
[2018-09-20] MEDS ORDERED: IBUPROFEN 600 MG TAB PO ONE ×2 (08:21→08:23)
[2018-09-20] MEDS ORDERED: LORazepam 1 MG TAB PO ONE (08:22)
[2018-09-20 09:03] VITALS: BP 121/85
== END 2018-09-20 09:02 | disposition home or self-care (01) ==
DX: H10.33 Unspecified acute conjunctivitis, bilateral (principal)